=== PATIENT | male | born 1960 | race Caucasian/White ===

== ENCOUNTER → 2025-09-12 08:40 | Outpatient (CLI) | payer OTHER, SELFPAY ==
--- NOTE | 2025-09-12 08:47 | DI.CT.S_ITS ---
PROCEDURE: CT ABDOMEN PELVIS W CON INDICATIONS: Constipation TECHNIQUE: After the administration of intravenous contrast, axial sections acquired from the lung bases to the pubic symphysis. Coronal and sagittal reformats were performed. For radiation dose reduction, the following was used: automated exposure control, adjustment of mA and/or kV according to patient size. COMPARISON: None. FINDINGS: Image quality: Diagnostic. Lower Chest: No significant findings. ABDOMEN: Liver: No solid mass. Fatty infiltration of the liver. No intrahepatic biliary dilation. Right liver measures 16.1 cm in length. Gallbladder: Gallbladder is contracted. No radiopaque gallstones or wall thickening. Biliary ducts: No biliary dilation. Pancreas: No ductal dilation. Spleen: Size is within normal limits. Adrenal Glands: No adrenal nodules. Kidneys and Ureters: No hydronephrosis. No solid mass. No complex renal cystic lesion which requires follow up. Stomach and Bowel: Normal colonic caliber, without significant wall thickening. Moderate volume stool in the large bowel. Appendix is not seen. Peritoneum: No abnormal intraperitoneal fluid. No free air. Ventral Wall: No significant ventral hernia. Abdominal Nodes: No retroperitoneal or mesenteric adenopathy by size criteria. Vessels: Aorta and inferior vena cava are normal in size. Mild atheromatous plaques are noted in the nonaneurysmal abdominal aorta. PELVIS: Pelvic Organs: Mild prostate and seminal vesicle enlargement. Otherwise unremarkable Bladder: No bladder wall thickening, accounting for underdistention. Pelvic Nodes: No enlarged lymph nodes. Miscellaneous: Small left fat containing inguinal hernia. No right inguinal hernia. Bones: No aggressive osseous abnormality. Multilevel degenerative disc disease and facet arthopathy noted. Vacuum disc noted at L4-5. High-grade central canal stenosis present at L4-5 due to large disc osteophyte complex and bilateral facet arthropathy. Moderate to marked L4-5 and L5-S1 bilateral foraminal stenosis. IMPRESSION: No acute abnormality in abdomen or pelvis. Fatty infiltration of the liver. High-grade central canal stenosis at L4-5. Moderate to marked bilateral L4-5 and L5-S1 foraminal stenosis. Dictated by: Aleena Arora M.D. on 09/12/2025 at 17:51 Approved by: Aleena Arora M.D. on 09/12/2025 at 18:03
[2025-09-12 09:35] LABS: Estimated Glomerular Filt Rate 54 mL/min (>60)
== END ==
PROVIDERS: Referring Provider Family Medicine; Visit Provider Family Medicine
DX: K59.00 Constipation, unspecified (principal); K76.0 Fatty (change of) liver, not elsewhere classified; M48.061 Spinal stenosis, lumbar region without neurogenic claudication; M48.07 Spinal stenosis, lumbosacral region; K40.90 Unilateral inguinal hernia, without obstruction or gangrene, not specified as recurrent
CPT/HCPCS: 36415; 74177; 82565; Q9967

== ENCOUNTER → 2025-10-10 10:42 | Outpatient (CLI) | payer OTHER, SELFPAY ==
--- NOTE | 2025-10-10 10:43 | DI.US.S_ITS ---
PROCEDURE: US RENAL COMPLETE INDICATIONS: chronic kidney disease TECHNIQUE: Real-time scanning was performed of the kidneys and bladder, with image documentation. COMPARISON: None. FINDINGS: Suboptimal imaging due to patient body habitus. Kidneys: Kidneys are normal in size. Right kidney measures 9.2 cm long; left kidney measures 10.5 cm long. Right renal cortical thickness is 1.7 cm; left renal cortical thickness is 2.2 cm. Renal cortical echotexture is normal. No hydronephrosis or nephrolithiasis. No suspicious solid mass lesions. Normal vascular flow. Bladder: Pre-void bladder volume is 177 mL. Post-void residual is 86 mL. Pre- void images demonstrate no intraluminal masses or stones. On pre-void images, bilateral ureteral jets are noted with color Doppler interrogation. (Of note, ureteral jets may not be detectable in up to 25% of cases due to insufficient differences in specific gravity between ureteral and bladder urine). Miscellaneous: No free pelvic fluid. IMPRESSION: Normal renal morphology bilaterally. Large postvoid residual in the urinary bladder. Dictated by: Aylin Go M.D. on 10/10/2025 at 15:46 Approved by: Aylin Go M.D. on 10/10/2025 at 15:51
== END ==
PROVIDERS: Referring Provider Family Medicine; Visit Provider Family Medicine
DX: N18.2 Chronic kidney disease, stage 2 (mild) (principal)
CPT/HCPCS: 76770